=== PATIENT | female | born 1955 | race Caucasian/White ===

== ENCOUNTER 2021-10-01 13:05 | Inpatient (IN) | payer BC, MEDICARE ==
[~2021-10-01] VITALS: Ht 157.5 cm; Wt 64.4 kg
[2021-10-01] MEDS ORDERED: VITAMIN C1000 MG PO (18:31)
[2021-10-01] MEDS ORDERED: MULTIVITAMIN1 EACH PO (18:32)
[2021-10-01] MEDS ORDERED: VITAMIN D350 MC3 PO (18:32)
[2021-10-01 22:32] LABS: RED BLOOD COUNT 3.77 M/UL (4.00-5.10); WHITE BLOOD COUNT 5.8 K/UL (4.5-11.0)
[2021-10-01 23:06] LABS: BUN/CREATININE RATIO 24 (0-10)
[2021-10-03 17:11] LABS: HEMOGLOBIN 13.1 gm/dl (12.3-15.3); RED BLOOD COUNT 4.08 M/UL (4.00-5.10); WHITE BLOOD COUNT 4.9 K/UL (4.5-11.0)
[2021-10-03 17:31] LABS: BUN/CREATININE RATIO 19 (0-10)
[2021-10-04 03:03] LABS: HEMOGLOBIN 11.9 gm/dl (12.3-15.3); RED BLOOD COUNT 3.77 M/UL (4.00-5.10); WHITE BLOOD COUNT 4.9 K/UL (4.5-11.0)
[2021-10-04 03:24] LABS: BUN/CREATININE RATIO 21 (0-10)
[2021-10-05 03:31] LABS: RED BLOOD COUNT 3.49 M/UL (4.00-5.10); WHITE BLOOD COUNT 5.1 K/UL (4.5-11.0)
[2021-10-05 04:06] LABS: BUN/CREATININE RATIO 24 (0-10)
[2021-10-05] MEDS ORDERED: LOVENOX40 MG/0.4 SQ (07:53)
[2021-10-05] MEDS ORDERED: HYDROCODON-ACE1 EAC2 PO (07:53)
[2021-10-05] MEDS ORDERED: DOCUSATE SODIU100 MG PO (09:35)
[2021-10-05] MEDS ORDERED: PROTONIX 40 MG40 M1 PO (09:35)
[2021-10-05] MEDS ORDERED: POLYETHYLENE GL17 GM PO (09:35)
[2021-10-06 04:52] LABS: HEMOGLOBIN 11.1 gm/dl (12.3-15.3); RED BLOOD COUNT 3.47 M/UL (4.00-5.10); WHITE BLOOD COUNT 6.3 K/UL (4.5-11.0)
[2021-10-06 04:54] LABS: BUN/CREATININE RATIO 26 (0-10)
[2021-10-06] MEDS ORDERED: SENNA PLUS TAB1 EACH PO ×2 (10:20→10:34)
[2021-10-06] MEDS ORDERED: POLYETHYLENE GL17 GM PO (10:34)
== END 2021-10-06 14:13 | disposition home health service (06) | DRG 501 ==
LOC: ER1 13:05 → CDU 18:12 → M/S 18:12
PROVIDERS: Internal Medicine; Orthopaedic Surgery; ADMIT Internal Medicine
PROC: 2W3QX2Z Immobilization of Right Lower Leg using Cast (ICD-10-PCS; 2021-10-04)
PROC: 0LSR0ZZ Reposition Left Knee Tendon, Open Approach (ICD-10-PCS; principal; 2021-10-04 11:45)
DX: S82.002A Unspecified fracture of left patella, initial encounter for closed fracture (principal); S82.041A Displaced comminuted fracture of right patella, initial encounter for closed fracture; S72.422A Displaced fracture of lateral condyle of left femur, initial encounter for closed fracture; Z20.822 Contact with and (suspected) exposure to COVID-19; S82.891A Other fracture of right lower leg, initial encounter for closed fracture; S82.491A Other fracture of shaft of right fibula, initial encounter for closed fracture; S82.51XA Displaced fracture of medial malleolus of right tibia, initial encounter for closed fracture; W18.39XA Other fall on same level, initial encounter; S82.62XA Displaced fracture of lateral malleolus of left fibula, initial encounter for closed fracture; E55.9 Vitamin D deficiency, unspecified; E78.5 Hyperlipidemia, unspecified; E03.9 Hypothyroidism, unspecified; K59.00 Constipation, unspecified; Z90.710 Acquired absence of both cervix and uterus; Z88.2 Allergy status to sulfonamides; Z82.49 Family history of ischemic heart disease and other diseases of the circulatory system
CPT/HCPCS: 29515; 29530; 36415; 73564; 73590; 73610; 73700; 80048; 80053; 81001; 85025; 85027; 85610; 85730; 86850; 86870; 86880; 86900; 86901; 86920; 86922; 93005; 96374; 96375; 97161; 97166; 97530; 97530-GP-CQ; 97535; 99284; C1713; C1763; J0690; J1100; J1170; J1650; J2001; J2250; J2270; J2370; J2405; J2704; J2795; J3010